=== PATIENT | male | born 1950 | race Caucasian/White ===

== ENCOUNTER → 2018-06-10 | Outpatient (CLI) | payer OTHER ==
--- NOTE | 2018-06-10 16:39 | PCVCIMAG ---
APPROVED REPORT Study performed: 06/10/2018 15:27:11 Exam: Stress Echocardiogram Indication: Dyspnea , Hypertension, Hyperlipidemia, Abnormal treadmill test Stress Nurse: Emily Day RN Status: routine Ht: 5 ft 10 in HR: 79 bpm BP: 130/70 mmHg Rhythm: NSR Medical History Medical History: HTN, Hyperlipidemia Exercise History: Physically active Procedure The patient underwent an Exercise Stress Test using the Ced Protocol. Blood pressure, heart rate, and EKG were monitored. An Echocardiogram was performed by master motorcycle technician in four stages in quad fashion. At peak stress, four selected images were obtained and placed side by side with resting images for comparison. Stress Test Details Stress Test: Exercise stress testing was performed using a Ced protocol. HR Resting HR: 79 bpmMax Heart Rate (APMHR): 152 bpm Max HR Achieved: 162 bpmTarget HR (85% APMHR): 129 bpm % of APMHR: 106 Recovery HR: 104 bpm HR response to stress: Normal HR response to stress BP Resting BP: 130/70 mmHg Max BP: 180/70 mmHg Recovery BP: 132/78 mmHg BP response to stress: Normal blood pressure response to stress. ECG Resting ECG: Sinus Rhythm Stress ECG: Sinus Rhythm ST Change: Normal Maximum ST Deviation: 0 mm Arrhythmia: VPC Recovery ECG: Sinus Rhythm Recovery ST Change: Normal Recovery ST Deviation: 0 mm Recovery Arrhythmia: None Clinical Reason for Termination: Maximal effort Exercise duration: 10 min sec Highest Stage Achieved: Stage 3: 3.4 mph at 14% grade. Exercise capacity: 13.10 METs Overall Exercise Capacity for Age: Normal Angina Score: None Stress ECG Conclusion Clinical: Non-ischemic ECG: Non-ischemic Brady Treadmill Score is 10.0 which is Low risk. Pre-Stress Echo The resting Echocardiogram showed normal left ventricular contractility with an estimated Ejection Fraction of about 55-60%. Normal wall motion in all segments on baseline images. Post-Stress Echo The stress Echocardiogram showed normal left ventricular contractility with an estimated Ejection Fraction of about 60-65%. Normal augmentation of wall motion in all segments on post stress images. Clinical No clinical or ECG evidence for ischemia. Conclusion Clinical Response: Non-ischemic Exercise Capacity: Average Stress ECG Response: Non-ischemic Stress Echo Images: Non-ischemic The left ventricle is normal in size and wall thickness in both the rest and stress images. Normal stress echocardiogram with maximal exercise stress. Other Information Study Quality: Technically Difficult <Conclusion> The left ventricle is normal in size and wall thickness in both the rest and stress images. Normal stress echocardiogram with maximal exercise stress.
== END | disposition home or self-care (01) ==
LOC: PCVCIMAG 14:42
PROVIDERS: ATTEND Internal Medicine
DX: I10 Essential (primary) hypertension (principal); R06.09 Other forms of dyspnea; R00.2 Palpitations; R07.89 Other chest pain
CPT/HCPCS: 93325; 93351